=== PATIENT | female | born 1955 | race Hispanic/Latino ===

== ENCOUNTER 2017-02-11 11:21 | Observation (INO) | payer MEDICARE, MEDICAID ==
[2017-02-11 11:21] VITALS: BMI 18.0
[2017-02-11] MEDS ORDERED: Sodium Chloride 0.9% 1,000 ML IV STA (11:40)
[2017-02-11 11:59] LABS: BASO % 0.3 % (0.0-2.0); EOS % 0.3 % (0.0-4.0); HEMATOCRIT 46.3 % (34.0-47.0); LYMPH # 1.3 K/uL (1.0-4.3); LYMPH % 9.1 % (20.0-40.0); MEAN CELL VOLUME 102.4 fl (81.0-99.0); MEAN CORPUSCULAR HEMOGLOBIN 34.8 pg (27.0-31.0); MEAN PLATELET VOLUME 9.5 fl (7.2-11.7); MONO # 0.8 K/uL (0.0-0.8); MONO % 5.7 % (0.0-10.0); NEUT # 12.2 K/uL (1.8-7.0); NEUT % 84.6 % (50.0-75.0); NRBC % 0.1 % (0.0-0.0); PLATELET COUNT 154 K/uL (130-400); RED CELL DISTRIBUTION WIDTH 14.2 % (11.5-14.5); WHITE BLOOD COUNT 14.4 K/uL (4.8-10.8)
--- NOTE | 2017-02-11 12:06 | RAD ---
HISTORY: chest pain COMPARISON: 11/23/2016 FINDINGS: LUNGS: Mild bullous change right apex as on CT angio chest of 11/23/2016. PLEURA: No significant pleural effusion identified, no pneumothorax apparent. CARDIOVASCULAR: Normal. OSSEOUS STRUCTURES: No significant abnormalities. VISUALIZED UPPER ABDOMEN: Normal. OTHER FINDINGS: None. IMPRESSION: Mild bullous change right apex. No acute infiltrate.
[2017-02-11 12:10] LABS: ALB/GLOB RATIO 1.3 (1.0-2.1); ALKALINE PHOSPHATASE 83 U/L (38-126); ALT/SGPT 22 U/L (9-52); AST/SGOT 28 U/L (14-36); BILIRUBIN,TOTAL 0.4 mg/dl (0.2-1.3); BLOOD UREA NITROGEN 17 mg/dl (7-17); CALCIUM 9.9 mg/dL (8.4-10.2); CARBON DIOXIDE 20 mmol/L (22-30); CHLORIDE 105 mmol/L (98-107); GFR AFRICAN-AMERICAN > 60; GLUCOSE,RANDOM 175 mg/dL (65-105); SODIUM 142 mmol/l (132-148); TOTAL PROTEIN 7.8 G/DL (6.3-8.2)
[2017-02-11 12:21] LABS: POTASSIUM 4.1 MMOL/L (3.6-5.0)
--- NOTE | 2017-02-11 13:54 | ED PDOC ---
HPI: General Adult Time Seen by Provider: 02/11/17 11:50 Chief Complaint (Nursing): Abdominal Pain Chief Complaint (Provider): CHEST PAIN History Per: Patient (61 Y/O FEMALE H/O HIV/ CAD here for complaint of palpitations and ten minutes of left sided chest pressure today. Denies any sob. Patient has finished treatment for right foot infection recently. Patient has been afflicted by diarrhea with abdominal pain and small amount of blood. States abdominal pain resolved with stool. No vomiting. ) Past Medical History Reviewed: Historical Data, Nursing Documentation, Vital Signs Vital Signs: Last Vital Signs Temp 97.3 F L 02/11/17 11:30 Pulse 108 H 02/11/17 11:30 Resp 20 02/11/17 11:30 BP 130/82 02/11/17 11:30 Pulse Ox 98 02/11/17 11:30 - Medical History PMH: Anemia, Anxiety, Arthritis, Bipolar Disorder, CAD, Cardia Arrhythmia, COPD , Depression, Diverticulitis, Emphysema, Fractures (Right shoulder (9 years old) ), Gastritis, GERD, HIV, Hypercholesterolemia, Hypothyroidism, Pneumonia Denies: Gall Bladder Disease, HTN, Chronic Kidney Disease, Seizures, Sickle Cell Disease, TIA - Surgical History Surgical History: CABG Other surgeries: cabg in [place] - Family History Family History: States: Unknown Family Hx - Home Medications Home Medications: Ambulatory Orders Medication Instructions Recorded ARIPiprazole [Abilify] 15 mg PO HS 11/06/16 Abacavir/Dolutegravir/Lamivudi 1 tab PO HS 11/06/16 [Triumeq Tablet] Aspirin [Ecotrin] 81 mg PO DAILY 11/06/16 Clonazepam [Klonopin] 0.5 mg PO TID 11/06/16 Levothyroxine [Synthroid] 25 mcg PO DAILY 11/06/16 Multivitamin [One-A-Day Essential] 1 tab PO DAILY 11/06/16 Rosuvastatin Calcium [Crestor] 5 mg PO DAILY 11/06/16 hydrOXYzine Pamoate [Vistaril] 25 mg PO DAILY 11/06/16 DULoxetine [Cymbalta] 60 mg PO HS 11/13/16 Clindamycin [Cleocin] 300 mg PO Q8 #21 cap 01/29/17 Esomeprazole Magnesium [Nexium] 20 mg PO DAILY 03/02/17 - Allergies Allergies/Adverse Reactions: Allergies Allergy/AdvReac Type Severity Reaction Status Date / Time ampicillin Allergy ITCHING Verified 02/11/17 11:36 latex Allergy ITCHING Verified 02/11/17 11:36 Penicillins Allergy ITCHING Verified 02/11/17 11:36 sulfamethoxazole Allergy "shakes" Verified 02/11/17 11:36 [From Bactrim] trimethoprim [From Bactrim] Allergy "shakes" Verified 02/11/17 11:36 Review of Systems ROS Statement: Except As Marked, All Systems Reviewed And Found Negative Cardiovascular: Positive for: Chest Pain Gastrointestinal: Positive for: Diarrhea Physical Exam - Reviewed Nursing Documentation Reviewed: Yes Vital Signs Reviewed: Yes - Physical Exam Appears: Positive for: Well, Non-toxic, No Acute Distress Head Exam: Positive for: ATRAUMATIC, NORMAL INSPECTION, NORMOCEPHALIC Skin: Positive for: Normal Color, Warm, DRY Eye Exam: Positive for: EOMI, Normal appearance, PERRL ENT: Positive for: Normal ENT Inspection Neck: Positive for: Normal, Painless ROM Cardiovascular/Chest: Positive for: Regular Rate, Rhythm Respiratory: Positive for: CNT, Normal Breath Sounds Gastrointestinal/Abdominal: Positive for: Normal Exam, Bowel Sounds, Soft Back: Positive for: Normal Inspection Extremity: Positive for: Normal ROM Neurologic/Psych: Positive for: Alert, Oriented - Laboratory Results Result Diagrams: 02/11/17 11:44 02/11/17 11:44 - ECG O2 Sat by Pulse Oximetry: 98 - Progress ED Course And Treament: EKG: NSR 94bpm; no ectopy ;no acute changes ASA 324 mg x 1 dose ordered CXR: emph[facility]sema d[facility]. [facility] observation Disposition - Clinical Impression Clinical Impression: Chest pain, Diarrhea - Patient ED Disposition Is Patient to be Admitted: Yes - Disposition Disposition Time: 13:45 Condition: FAIR - Pt Status Changed To: Hospital Disposition Of: Observation
[2017-02-11 14:18] LABS: NEUTROPHIL 87 % (42-75); TOTAL CELLS COUNTED 100
[2017-02-11 14:20] LABS: LARGE PLATELETS PRESENT
--- NOTE | 2017-02-11 15:16 | CP.PCM.HP ---
Addendum entered and electronically signed by Jesi Alejandre MD 02/11/17 17:19 : Updated LAb values: 01/09/17 BMP WNL. Lipid panal WNL - HCV: neg - RPR: neg Original Note: History of Present Illness - History of Present Illness History of Present Illness: 61 Y/O F s/p left foot osteotomy with screw fixation (01/21/17), s/p course of abx, w/ a PMH of HIV (last CD4: 819 (01/10/17), PVD, COPD, Hyperlipidemia, Hypothyroidism, Depression presented to ED for a self limiting eppisode of chest pain. Pt states the chest pain started when she got up from a laying down position around 11am, chest pain was sharp in nature, 5/10 in intesinity non radiating. Patients states that the chest pain subsided when she came to the ER. Associated w/ dizziness and palpitation. Denies association w/ n/v/sob, or syncope. Pt states that she had a similar episode in the past, where she passed out and hit her head. Pt states she is compliant with her medication. - Pt had her left foot osteotomy with screw fixation on 01/21/17. After the surgery pt had an infection on the surgery and was given a three day course of clindamycin which she completed today. She developed diarrhea 2 days ago, can not quantify how many times a day she has a bowl movement. IT is non foul smelling, contains pinkish colored blood mixed with mucus stool. P Also noticed pink colored blood on whipping. PMH: CAD s/p CABG, Internal hemorrhoids, hypercholesterolemia, COPD, HIV ( VL: undetectable, CD4: 819 (01/10/17), Bipolar disorder, Tobacco abuse Med:As per chart Allergy: PVN, Latex, ampicillin, sulfamethoxazole, trimethoprim Family Hx: Mother 2/2 lung cancer, father pased away 2/2 heart disease/copd in 50 Surgical Hx: Tipple bipass surgery 2006, left foot osteotomy with screw fixation (01/21/17) Social: 3-4 cig a day since she was 14, Marijuana 2-3 blunts a day. Denies ETOH use ED Course EKG: Consistent with previous EKG ASA 324 mg x 1 dose CXR: emphysema CBC: WBC:14.4, MCV:102.4 C Difficle - Reviewed Holter monitor from 11/2015: 1st degree AV block - ECHO: 11/13/16: 65%, right ventricle mildly dilated, rt ventricular systolic function mildly dilated - Nuclear scan: 12/11/16: EF:65% Lexiscan WNL Present on Admission - Present on Admission Any Indicators Present on Admission: No Review of Systems - Review of Systems Review of Systems: negative except as above Past Patient History - Infectious Disease Hx of Infectious Diseases: None - Tetanus Immunizations Tetanus Immunization: Unknown - Past Medical History & Family History Past Medical History?: Yes - Past Social History Smoking Status: Heavy Smoker > 10 Cigarettes Daily - CARDIAC Hx Cardia Arrhythmia: Yes Hx Hypercholesterolemia: Yes Hx Hypertension: No - PULMONARY Hx Chronic Obstructive Pulmonary Disease (COPD): Yes Hx Emphysema: Yes Hx Pneumonia: Yes - NEUROLOGICAL Hx Seizures: No Hx Transient Ischemic Attacks (TIA): No - HEENT Hx HEENT Problems: No Hx Blind: No Hx Cataracts: No Hx Deafness: No Hx Difficulty Chewing: No Hx Epistaxis: No Hx Glaucoma: No Hx Macular Degeneration: No - RENAL Hx Chronic Kidney Disease: No - ENDOCRINE/METABOLIC Hx Hypothyroidism: Yes - HEMATOLOGICAL/ONCOLOGICAL Hx Anemia: Yes Hx Human Immunodeficiency Virus (HIV): Yes Hx Sickle Cell Disease: No - INTEGUMENTARY Hx Dermatological Problems: No Hx Basil Cell: No Hx Rendon: No Hx Cellulitis: No Hx Eczema: No Hx Melanoma: No Hx Psoriasis: No Hx Squamous Cell: No - MUSCULOSKELETAL/RHEUMATOLOGICAL Hx Arthritis: Yes Hx Fractures: Yes (Right shoulder (9 years old)) - GASTROINTESTINAL Hx Diverticulitis: Yes Hx Gall Bladder Disease: No Hx Gastritis: Yes - GENITOURINARY/GYNECOLOGICAL Hx Genitourinary Disorders: No - PSYCHIATRIC Hx Anxiety: Yes Hx Bipolar Disorder: Yes Hx Depression: Yes - SURGICAL HISTORY Hx Coronary Artery Bypass Graft: Yes - ANESTHESIA Hx Anesthesia: Yes Hx Anesthesia Reactions: No Hx Malignant Hyperthermia: No Meds Allergies/Adverse Reactions: Allergies Allergy/AdvReac Type Severity Reaction Status Date / Time ampicillin Allergy ITCHING Verified 02/11/17 11:36 latex Allergy ITCHING Verified 02/11/17 11:36 Penicillins Allergy ITCHING Verified 02/11/17 11:36 sulfamethoxazole Allergy "shakes" Verified 02/11/17 11:36 [From Bactrim] trimethoprim [From Bactrim] Allergy "shakes" Verified 02/11/17 11:36 Physical Exam - Constitutional Appears: No Acute Distress - Head Exam Head Exam: NORMAL INSPECTION - Eye Exam Eye Exam: EOMI, Normal appearance Pupil Exam: NORMAL ACCOMODATION, PERRL - Respiratory Exam Respiratory Exam: Clear to Auscultation Bilateral, NORMAL BREATHING PATTERN. absent: Rhonchi, Wheezes - Cardiovascular Exam Cardiovascular Exam: REGULAR RHYTHM, +S1, +S2 - Extremities Exam Extremities exam: Negative for: calf tenderness, joint swelling Additional comments: Operation site on left foot seems clean, dry and intact no swelling or discharge - Neurological Exam Neurological exam: Alert, CN II-XII Intact, Oriented x3 - Psychiatric Exam Psychiatric exam: Normal Affect Results - Vital Signs Recent Vital Signs: Last Vital Signs Temp 98.3 F 02/11/17 14:02 Pulse 83 02/11/17 14:02 Resp 18 02/11/17 14:02 BP 108/67 02/11/17 14:02 Pulse Ox 96 02/11/17 14:02 - Labs Result Diagrams: 02/11/17 11:44 02/11/17 11:44 Assessment & Plan - Assessment and Plan (Free Text) Assessment: 61 y/o F with PMH of HIV (last CD4: 819 (01/10/17)), PVD, COPD, Hyperlipidemia, Hypothyroidism, Depression, GARY admitted for evaluation retrosternal chest pain. Chest pain associated with palpitations -Etiology undetermined. ACS vs Substance induced vs Vasovagal -Troponin x1 negative. Follow serial troponins -EKG NSR with no acute ischemic changes -Admit to telemetry for monitoring -ASA 81mg PO daily - Urine toxicology -On statin Diarrhea - F/U C Diff toxin - F/U Fecal Occult blood - 500 ml IV fluid NS Bolus PVD -S/P femoral artery bypass in 2006 -On statin and ASA daily Hyperlipidemia -Well controlled -Lipid panel on 11/14/16: Total chol: 142, LDL: 65, HDL: 38 -Lipitor 20mg PO Hypothyroidism -On Synthroid 25mcg daily HIV -CD4: 819 (01/10/17) -Continue Triumeq daily (patients own) Depression -Taking Cymbalta 60mg PO HS GARY -Following with Tip Goss at [facility] - Klonopin 0.5mg PO HS DVT Prophylaxis -Hold lovenox: as per pt complaining of blood in stool -SCDs
[2017-02-11] MEDS ORDERED: Sodium Chloride 0.9% 500 ML IV SCH (15:45)
[2017-02-11 17:07] VITALS: RESP 18
[2017-02-11 18:00] LABS: RBC URINE 24 /hpf (0-3); URINE BACTERIA RARE (<OCC); URINE BILIRUBIN NEGATIVE (NEGATIVE); URINE BLOOD NEGATIVE (NEGATIVE); URINE COLOR YELLOW (YELLOW); URINE GLUCOSE (UA) NEG (Normal); URINE KETONE NEGATIVE (NEGATIVE); URINE LEUKOCYTE ESTERASE LARGE Leu/uL (Negative); URINE PROTEIN NEGATIVE (NEGATIVE); URINE UROBILINOGEN 0.2-1.0 mg/dL (0.2-1.0); WBC URINE 26 /hpf (0-5)
[2017-02-11] MEDS: Patient's Own Med (Abacavir/Dolutegravir/Lamivudi [Triumeq Tablet] 1 TAB) PO SCH ×2 (21:05→21:09)
[2017-02-11] MEDS ORDERED: Docusate-Senna 50 mg-8.6 mg Tab PO SCH (22:00)
[2017-02-12] MEDS ORDERED: Levothyroxine 25 MCG TAB PO SCH (06:30)
[2017-02-12 07:06] LABS: BASO % 0.8 % (0.0-2.0); EOS % 0.8 % (0.0-4.0); HEMATOCRIT 43.3 % (34.0-47.0); LYMPH # 1.5 K/uL (1.0-4.3); LYMPH % 24.3 % (20.0-40.0); MEAN CELL VOLUME 103.2 fl (81.0-99.0); MEAN CORPUSCULAR HEMOGLOBIN 34.2 pg (27.0-31.0); MEAN CORPUSCULAR HGB CONC 33.1 g/dL (33.0-37.0); MEAN PLATELET VOLUME 9.6 fl (7.2-11.7); MONO # 0.7 K/uL (0.0-0.8); MONO % 11.3 % (0.0-10.0); NEUT % 62.8 % (50.0-75.0); NRBC % 0.1 % (0.0-0.0); RED CELL DISTRIBUTION WIDTH 14.2 % (11.5-14.5); WHITE BLOOD COUNT 6.3 K/uL (4.8-10.8)
[2017-02-12 08:15] LABS: BLOOD UREA NITROGEN 13 mg/dl (7-17); CALCIUM 9.1 mg/dL (8.4-10.2); CARBON DIOXIDE 22 mmol/L (22-30); CHLORIDE 112 mmol/L (98-107); GFR AFRICAN-AMERICAN > 60; GLUCOSE,RANDOM 92 mg/dL (65-105); POTASSIUM 4.3 MMOL/L (3.6-5.0); SODIUM 145 mmol/l (132-148)
[2017-02-12] MEDS ORDERED: Patient's Own Med (Abacavir/Dolutegravir/Lamivudi [Triumeq Tablet] 1 TAB) PO SCH (09:00)
[2017-02-12] MEDS ORDERED: Multivitamin With Minerals Tab PO SCH (09:00)
[2017-02-12] MEDS ORDERED: metroNIDAZOLE 500mg/100ml NS 100 ML IVPB SCH (09:45)
--- NOTE | 2017-02-12 10:49 | CP.PCM.PN ---
Subjective - Date & Time of Evaluation Date of Evaluation: 02/12/17 Time of Evaluation: 07:00 - Subjective Subjective: PT was seen at bedside with no new complaints today. PT states Chest pain is subsided, denies, SOB, n/v. Patient has been eating, tolerating po intake. Diarrhea is still occurring, but blood has subsided in the stool, it is just brownish in color now. Denies any abdominal pain Results C difficle positive Objective - Vital Signs/Intake and Output Vital Signs (last 24 hours): Temp Pulse Resp BP Pulse Ox 97.8 F 61 18 148/82 100 02/12/17 08:03 02/12/17 08:03 02/12/17 08:03 02/12/17 08:03 02/12/17 08:03 - Medications Medications: Current Medications Aripiprazole (Abilify) 15 mg PO HS [facility] [place] Last Admin: 02/11/17 21:05 Dose: 15 mg Aspirin (Ecotrin) 81 mg PO DAILY [facility] Last Admin: 02/12/17 10:19 Dose: 81 mg Atorvastatin Calcium (Lipitor) 20 mg PO DAILY [facility] Last Admin: 02/12/17 10:19 Dose: 20 mg Clonazepam (Klonopin) 0.5 mg PO HS [facility] Last Admin: 02/11/17 21:05 Dose: 0.5 mg Duloxetine HCl (Cymbalta) 60 mg PO HS [facility] [place] Last Admin: 02/11/17 21:05 Dose: 60 mg Home Med (Abacavir/Dolutegravir/Lamivudi [Triumeq Tablet]) 1 tab PO DAILY [facility] [place] Last Admin: 02/12/17 10:18 Dose: 1 tab Sodium Chloride (Sodium Chloride 0.9%) 500 mls @ 500 mls/hr IV .Q1H [facility] [place] Last Admin: 02/11/17 17:02 Dose: Not Given Levothyroxine Sodium (Synthroid) 25 mcg PO DAILY@0630 [facility] Last Admin: 02/12/17 06:56 Dose: 25 mcg Metronidazole (Flagyl) 500 mg PO Q8 [facility] Multivitamins/Minerals (Therapeutic-M Tab) 1 tab PO DAILY [facility] Last Admin: 02/12/17 10:20 Dose: 1 tab - Labs Labs: 02/12/17 06:40 02/12/17 06:40 - Constitutional Appears: No Acute Distress - Head Exam Head Exam: NORMAL INSPECTION - Eye Exam Eye Exam: Normal appearance - Respiratory Exam Respiratory Exam: Clear to Ausculation Bilateral, NORMAL BREATHING PATTERN - Cardiovascular Exam Cardiovascular Exam: REGULAR RHYTHM, +S1, +S2 - GI/Abdominal Exam GI & Abdominal Exam: Soft, Normal Bowel Sounds. absent: Guarding, Rigid, Tenderness - Extremities Exam Extremities Exam: Normal Inspection. absent: Calf Tenderness - Neurological Exam Neurological Exam: Alert, Awake, Oriented x3 Assessment and Plan - Assessment and Plan (Free Text) Assessment: 61 y/o F with PMH of HIV (last CD4: 819 (01/10/17)), PVD, COPD, Hyperlipidemia, Hypothyroidism, Depression, GARY admitted for evaluation retrosternal chest pain. Chest pain associated with palpitations (Resolved) -Etiology undetermined. ACS vs Substance induced vs Vasovagal -Troponin x3 negative. -EKG NSR with no acute ischemic changes -Admit to telemetry for monitoring -ASA 81mg PO daily - Urine toxicology: positive for caniboids -On statin Diarrhea - C Diff Antigen positive, toxin negative - Fecal Occult blood positive - Metronidazole 500mg PO Q8 x 14 days PVD -S/P femoral artery bypass in 2006 -On statin and ASA daily Hyperlipidemia -Well controlled -Lipid panel on 11/14/16: Total chol: 142, LDL: 65, HDL: 38 -Lipitor 20mg PO Hypothyroidism -On Synthroid 25mcg daily HIV -CD4: 819 (01/10/17) -Continue Triumeq daily (patients own) Depression -Taking Cymbalta 60mg PO HS GARY -Following with Tip Goss at [facility] - Klonopin 0.5mg PO HS DVT Prophylaxis -Lovenox -SCDs
[2017-02-12] MEDS ORDERED: Enoxaparin 40 mg Syringe SC SCH (11:00)
[2017-02-12 12:03] VITALS: BP 127/67; PULSE 66; TEMP 97.9; O2SAT 99
--- NOTE | 2017-02-12 13:03 | CP.PCM.DIS ---
Provider - Provider Date of Admission: 02/11/17 13:58 Attending physician: Christiana Zaldivar MD Time Spent in preparation of Discharge (in minutes): 30 Diagnosis - Discharge Diagnosis (1) C. difficile diarrhea Status: Acute Hospital Course - Lab Results Lab Results: Most Recent Lab Values WBC 6.3 K/uL (4.8-10.8) D 02/12/17 06:40 RBC 4.19 Mil/uL (3.80-5.20) 02/12/17 06:40 Hgb 14.3 g/dL (12.0-16.0) 02/12/17 06:40 Hct 43.3 % (34.0-47.0) 02/12/17 06:40 MCV 103.2 fl (81.0-99.0) H 02/12/17 06:40 MCH 34.2 pg (27.0-31.0) H 02/12/17 06:40 MCHC 33.1 g/dL (33.0-37.0) 02/12/17 06:40 RDW 14.2 % (11.5-14.5) 02/12/17 06:40 Plt Count 139 K/uL (130-400) 02/12/17 06:40 MPV 9.6 fl (7.2-11.7) 02/12/17 06:40 Neut % (Auto) 62.8 % (50.0-75.0) 02/12/17 06:40 Lymph % (Auto) 24.3 % (20.0-40.0) 02/12/17 06:40 Cannon % (Auto) 11.3 % (0.0-10.0) H 02/12/17 06:40 Eos % (Auto) 0.8 % (0.0-4.0) 02/12/17 06:40 Baso % (Auto) 0.8 % (0.0-2.0) 02/12/17 06:40 Neut # 4.0 K/uL (1.8-7.0) 02/12/17 06:40 Lymph # 1.5 K/uL (1.0-4.3) 02/12/17 06:40 Cannon # 0.7 K/uL (0.0-0.8) 02/12/17 06:40 Eos # 0.0 K/uL (0.0-0.7) 02/12/17 06:40 Baso # 0.0 K/uL (0.0-0.2) 02/12/17 06:40 Neutrophils % (Manual) 87 % (42-75) H 02/11/17 11:44 Lymphocytes % (Manual) 8 % (20-50) L 02/11/17 11:44 Monocytes % (Manual) 5 % (0-10) 02/11/17 11:44 Platelet Estimate Normal (NORMAL) 02/11/17 11:44 Large Platelets Present 02/11/17 11:44 Anisocytosis (manual) Slight 02/11/17 11:44 Tear Drop Cells Slight 02/11/17 11:44 Sodium 145 mmol/l (132-148) 02/12/17 06:40 Potassium 4.3 MMOL/L (3.6-5.0) 02/12/17 06:40 Chloride 112 mmol/L (98-107) H 02/12/17 06:40 Carbon Dioxide 22 mmol/L (22-30) 02/12/17 06:40 Anion Gap 15 (10-20) 02/12/17 06:40 BUN 13 mg/dl (7-17) 02/12/17 06:40 Creatinine 0.9 mg/dL (0.7-1.2) 02/12/17 06:40 Est GFR ( Amer) > 60 02/12/17 06:40 Est GFR (Non-Af Amer) > 60 02/12/17 06:40 Random Glucose 92 mg/dL (65-105) 02/12/17 06:40 Calcium 9.1 mg/dL (8.4-10.2) 02/12/17 06:40 Magnesium 2.0 MG/DL (1.6-2.3) 02/11/17 11:44 Total Bilirubin 0.4 mg/dl (0.2-1.3) 02/11/17 11:44 AST 28 U/L (14-36) 02/11/17 11:44 ALT 22 U/L (9-52) 02/11/17 11:44 Alkaline Phosphatase 83 U/L (38-126) 02/11/17 11:44 Troponin I < 0.0120 ng/mL (0.00-0.120) 02/12/17 00:08 Total Protein 7.8 G/DL (6.3-8.2) 02/11/17 11:44 Albumin 4.4 g/dL (3.5-5.0) 02/11/17 11:44 Globulin 3.4 gm/dL (2.2-3.9) 02/11/17 11:44 Albumin/Globulin Ratio 1.3 (1.0-2.1) 02/11/17 11:44 Urine Color Yellow (YELLOW) 02/11/17 17:40 Urine Clarity Slighty-cloudy (Clear) 02/11/17 17:40 Urine pH 5.0 (5.0-8.0) 02/11/17 17:40 Ur Specific Pegram 1.016 (1.003-1.030) 02/11/17 17:40 Urine Protein Negative mg/dL (NEGATIVE) 02/11/17 17:40 Urine Glucose (UA) Neg mg/dL (Normal) 02/11/17 17:40 Urine Ketones Negative mg/dL (NEGATIVE) 02/11/17 17:40 Urine Blood Negative (NEGATIVE) 02/11/17 17:40 Urine Nitrate Negative (NEGATIVE) 02/11/17 17:40 Urine Bilirubin Negative (NEGATIVE) 02/11/17 17:40 Urine Urobilinogen 0.2-1.0 mg/dL (0.2-1.0) 02/11/17 17:40 Ur Leukocyte Esterase Large Magdalena/uL (Negative) 02/11/17 17:40 Urine RBC (Auto) 24 /hpf (0-3) H 02/11/17 17:40 Urine Microscopic WBC 26 /hpf (0-5) H 02/11/17 17:40 Ur Squamous Epith Cells 2 /hpf (0-5) 02/11/17 17:40 Urine Bacteria Rare (<OCC) 02/11/17 17:40 Stool Occult Blood Positive (NEGATIVE) H 02/11/17 17:40 Urine Opiates Screen Negative (NEGATIVE) 02/12/17 00:30 Urine Methadone Screen Negative (NEGATIVE) 02/12/17 00:30 Ur Barbiturates Screen Negative (NEGATIVE) 02/12/17 00:30 Ur Phencyclidine Scrn Negative (NEGATIVE) 02/12/17 00:30 Ur Amphetamines Screen Negative (NEGATIVE) 02/12/17 00:30 U Benzodiazepines Scrn Negative (NEGATIVE) 02/12/17 00:30 U Oth Cocaine Metabols Negative (NEGATIVE) 02/12/17 00:30 U Cannabinoids Screen Positive (NEGATIVE) H 02/12/17 00:30 C. difficile Ag & Toxin Positive (NEGATIVE) H 02/11/17 08:02 - Hospital Course Hospital Course: 61 YO F w/ PMH of HIV, COPD, Hyperlipidemia, hypothyroidism, depression,anxiety was admitted to the hospital for Diarrhea s/p taking a course of clindamycin and self resolving chest pain. - Pt's chest pain resloved when she came to the ER, EKG was same as baseline no ischemic changes noted, Troponin x 3 negative. PT has had similar eppisodes in the past and is most likely anxiety induced. - Pt was found to be C diff positve antigen and toxin negative. - Pt was given a 14 day course of Metronidazole 500mg TID. And has been advised to follow up with her PMD. Ambulatory orders: - Rosuvastatin 5mg PO daily - Clonazepam .5mg PO HS - Triumeq tablet: 1 tav PO HS - Levothyroxine 25mcg tab - Asprin 81mg PO daily - Aripiprazole 15mg PO HS - Duloxetine 60 mg PO HS - Meloxicam 7.5 mg PO BID - Metronidazole 500 mg TID x 14 days Discharge Exam - Head Exam Head Exam: NORMAL INSPECTION - Eye Exam Eye Exam: Normal appearance - Respiratory Exam Respiratory Exam: NORMAL BREATHING PATTERN. absent: Rales, Rhonchi, Wheezes - Cardiovascular Exam Cardiovascular Exam: REGULAR RHYTHM, +S1, +S2 - GI/Abdominal Exam GI & Abdominal Exam: Normal Bowel Sounds, Soft. absent: Tenderness - Neurological Exam Neurological exam: Alert, CN II-XII Intact, Normal Gait, Oriented x3 Discharge Plan - Discharge Medications Prescriptions: Metronidazole [Flagyl] 500 mg PO TID #41 tablet - Follow Up Plan Condition: FAIR Disposition: HOME/ ROUTINE Instructions: Chest Pain (DC), Rotavirus Infection (DC), Rotavirus Infection ( GEN), Nutrition Tips for Relief of Diarrhea (DC), Nutrition Tips for Relief of Diarrhea (GEN) Additional Instructions: Take antibiotics (Metronidazole tid for 14 days) first dose given in hospital. Follow up to the clinic w/ in one week. If chest pain returns return or diarrhea worsens return to ER.
--- NOTE | 2017-02-12 19:00 | CARD ---
APPROVED REPORT EKG Measurement Heart [id number] <Conclusion> Normal sinus rhythm Possible Left atrial enlargement Borderline ECG
== END 2017-02-12 15:07 | disposition home or self-care (01) ==
LOC: H.ER 11:21 → H.ERHOLD 13:58 → H.TEL 15:20
PROVIDERS: ADMIT Family Medicine Geriatric Medicine; ATTEND Family Medicine Geriatric Medicine
DX: A04.7 Enterocolitis due to Clostridium difficile (principal); I25.10 Atherosclerotic heart disease of native coronary artery without angina pectoris; E03.9 Hypothyroidism, unspecified; F12.10 Cannabis abuse, uncomplicated; E78.00 Pure hypercholesterolemia, unspecified; E78.5 Hyperlipidemia, unspecified; F31.9 Bipolar disorder, unspecified; F41.9 Anxiety disorder, unspecified; J44.9 Chronic obstructive pulmonary disease, unspecified; K21.9 Gastro-esophageal reflux disease without esophagitis; K29.70 Gastritis, unspecified, without bleeding; Z95.1 Presence of aortocoronary bypass graft; Z21 Asymptomatic human immunodeficiency virus [HIV] infection status; I73.9 Peripheral vascular disease, unspecified; F17.210 Nicotine dependence, cigarettes, uncomplicated; Z79.82 Long term (current) use of aspirin; Z88.0 Allergy status to penicillin; Z88.2 Allergy status to sulfonamides; Z91.040 Latex allergy status
CPT/HCPCS: 36415; 71010; 80048; 80053; 81003; 83735; 84484; 85025; 87230; 93005; 99284; G0328; G0378; G0480; J7040

== ENCOUNTER 2017-06-16 08:29 | Day surgery (SDC) | payer MEDICARE, MEDICAID ==
[2017-06-16] MEDS ORDERED: Lactated Ringer's 500 ML IV ONE (09:15)
[2017-06-16] MEDS ORDERED: Propofol 10 mg/ml Inj (20 ML) ONE (09:37)
[2017-06-16 10:16] VITALS: TEMP 96.9; O2SAT 99
[2017-06-16 10:17] VITALS: BP 100/50; PULSE 64; RESP 15
== END 2017-06-16 11:59 | disposition home or self-care (01) ==
LOC: H.ENDO 08:29
PROVIDERS: ATTEND Internal Medicine Gastroenterology
DX: Z12.11 Encounter for screening for malignant neoplasm of colon (principal); R63.4 Abnormal weight loss; E03.9 Hypothyroidism, unspecified; F32.9 Major depressive disorder, single episode, unspecified; K57.30 Diverticulosis of large intestine without perforation or abscess without bleeding; K64.0 First degree hemorrhoids; K62.5 Hemorrhage of anus and rectum; K29.70 Gastritis, unspecified, without bleeding
CPT/HCPCS: 43239; 88305; G0121; J2001; J2704; J7120

== ENCOUNTER 2017-08-09 13:00 | Observation (INO) | payer MEDICARE, MEDICAID ==
[2017-08-09 13:01] VITALS: BMI 18.0
--- NOTE | 2017-08-09 14:09 | ED PDOC ---
HPI: Chest Pain Time Seen by Provider: 08/09/17 13:21 Chief Complaint (Nursing): Palpitations Chief Complaint (Provider): Palpitations History Per: Patient History/Exam Limitations: no limitations Onset/Duration Of Symptoms: Days Current Symptoms Are (Timing): Still Present Additional Complaint(s): 62 y/o female with a past medical history of human immunodeficiency virus (HIV) (undetectable viral load and does not know CD4 count) who presents to the emergency department with a complaint of intermittent palpitations since yesterday, 08/09/2017, + near syncope, no LOC. Reports she was monitor placed that showed an irregular rhythm but does not know the specifics and was told she needed surgery for this irregular beat. Denies chest pain and shortness of breath. ASA discontinued 2 days ago by PMD secondary to bruising. Past Medical History Reviewed: Historical Data, Nursing Documentation, Vital Signs Vital Signs: Last Vital Signs Temp 97.7 F 08/09/17 13:04 Pulse 71 08/09/17 17:23 Resp 18 08/09/17 17:23 BP 155/87 H 08/09/17 17:23 Pulse Ox 99 08/09/17 17:49 - Medical History PMH: Anemia, Anxiety, Arthritis, Bipolar Disorder, CAD, Cardia Arrhythmia, COPD , Depression, Diverticulitis, Emphysema, Fractures (Right shoulder (9 years old) ), Gastritis, GERD, HIV, Hypercholesterolemia, Hypothyroidism, Pneumonia Denies: Gall Bladder Disease, HTN, Chronic Kidney Disease, Seizures, Sickle Cell Disease, TIA - Surgical History Surgical History: CABG (2006) - Family History Family History: States: Unknown Family Hx - Home Medications Home Medications: Ambulatory Orders Medication Instructions Recorded ARIPiprazole [Abilify] 15 mg PO HS 11/06/16 Abacavir/Dolutegravir/Lamivudi 1 tab PO HS 11/06/16 [Triumeq Tablet] Aspirin [Ecotrin] 81 mg PO DAILY 11/06/16 Clonazepam [Klonopin] 0.5 mg PO HS 11/06/16 Levothyroxine [Synthroid] 25 mcg PO DAILY 11/06/16 Multivitamin [One-A-Day Essential] 1 tab PO DAILY 11/06/16 Rosuvastatin Calcium [Crestor] 5 mg PO DAILY 11/06/16 DULoxetine [Cymbalta] 60 mg PO HS 11/13/16 Meloxicam [Mobic] 7.5 mg PO BID 02/11/17 Metronidazole [Flagyl] 500 mg PO TID #41 tablet 02/12/17 - Allergies Allergies/Adverse Reactions: Allergies Allergy/AdvReac Type Severity Reaction Status Date / Time ampicillin Allergy ITCHING Verified 06/16/17 09:06 latex Allergy ITCHING Verified 06/16/17 09:06 Penicillins Allergy ITCHING Verified 06/16/17 09:06 sulfamethoxazole Allergy "shakes" Verified 06/16/17 09:06 [From Bactrim] trimethoprim [From Bactrim] Allergy "shakes" Verified 06/16/17 09:06 Review of Systems ROS Statement: Except As Marked, All Systems Reviewed And Found Negative Cardiovascular: Positive for: Palpitations. Negative for: Chest Pain Respiratory: Negative for: Shortness of Breath Physical Exam - Reviewed Nursing Documentation Reviewed: Yes Vital Signs Reviewed: Yes - Physical Exam Appears: Positive for: Non-toxic, No Acute Distress Head Exam: Positive for: ATRAUMATIC, NORMAL INSPECTION, NORMOCEPHALIC Skin: Positive for: Normal Color, Warm, Dry Neck: Positive for: Normal, Supple Cardiovascular/Chest: Positive for: Regular Rate, Rhythm. Negative for: Murmur Respiratory: Positive for: Normal Breath Sounds. Negative for: Accessory Muscle Use, Respiratory Distress Neurologic/Psych: Positive for: Alert, Oriented (x3) - Laboratory Results Result Diagrams: 08/09/17 14:30 08/09/17 14:30 - ECG O2 Sat by Pulse Oximetry: 99 (RA) Pulse Ox Interpretation: Normal Medical Decision Making Medical Decision Making: Time: 03:31 Initial impression: Palpitations Initial plan: --EKG --CMP --TSH --Troponin I --Urine DIP --CBC w/ diff --D Dimer --Prothrombin --Chest x-ray --Urinalysis --Reevaluation Time: 14:11 --Chest x-ray FINDINGS: LUNGS: Hyperinflation, manifestations of COPD. No active pulmonary disease. PLEURA: No significant pleural effusion identified. No pneumothorax apparent. CARDIOVASCULAR: Normal. OSSEOUS STRUCTURES: No significant abnormalities. VISUALIZED UPPER ABDOMEN: Normal. OTHER FINDINGS: None. IMPRESSION: No active disease. No significant interval change compared to the prior examination(s). Time: 15:24 --Angio Chest PE CT Scribe Attestation: Documented by Oly Dager, acting as a scribe for Maria R Davis MD. Provider Scribe Attestation: All medical record entries made by the Scribe were at my direction and personally dictated by me. I have reviewed the chart and agree that the record accurately reflects my personal performance of the history, physical exam, medical decision making, and the department course for this patient. I have also personally directed, reviewed, and agree with the discharge instructions and disposition. Disposition - Clinical Impression Clinical Impression: Palpitations, Near syncope - Patient ED Disposition Is Patient to be Admitted: Yes - Disposition Referrals: [facility] [Outside] Disposition Time: 17:45 Condition: STABLE Forms: [employer] (Croatian) Print Language: GREENLANDIC - Pt Status Changed To: Hospital Disposition Of: Observation - POA Present On Arrival: None
--- NOTE | 2017-08-09 14:12 | RAD ---
HISTORY: Palpitations COMPARISON: 02/11/2017. TECHNIQUE: Chest PA and lateral FINDINGS: LUNGS: Hyperinflation, manifestations of COPD. No active pulmonary disease. PLEURA: No significant pleural effusion identified. No pneumothorax apparent. CARDIOVASCULAR: Normal. OSSEOUS STRUCTURES: No significant abnormalities. VISUALIZED UPPER ABDOMEN: Normal. OTHER FINDINGS: None. IMPRESSION: No active disease. No significant interval change compared to the prior examination(s).
[2017-08-09 14:52] LABS: BASO % 0.2 % (0.0-2.0); EOS % 0.1 % (0.0-4.0); HEMATOCRIT 48.1 % (34.0-47.0); LYMPH # 1.6 K/uL (1.0-4.3); LYMPH % 17.9 % (20.0-40.0); MEAN CELL VOLUME 103.2 fl (81.0-99.0); MEAN CORPUSCULAR HEMOGLOBIN 33.7 pg (27.0-31.0); MEAN CORPUSCULAR HGB CONC 32.7 g/dL (33.0-37.0); MONO # 0.4 K/uL (0.0-0.8); MONO % 4.3 % (0.0-10.0); NEUT # 7.1 K/uL (1.8-7.0); NEUT % 77.5 % (50.0-75.0); NRBC % 0.1 % (0.0-0.0); RED CELL DISTRIBUTION WIDTH 14.3 % (11.5-14.5); WHITE BLOOD COUNT 9.1 K/uL (4.8-10.8)
[2017-08-09 14:58] LABS: ALB/GLOB RATIO 1.3 (1.0-2.1); ALKALINE PHOSPHATASE 73 U/L (38-126); ALT/SGPT 36 U/L (9-52); AST/SGOT 36 U/L (14-36); BILIRUBIN,TOTAL 0.4 mg/dl (0.2-1.3); BLOOD UREA NITROGEN 20 mg/dl (7-17); CALCIUM 10.1 mg/dL (8.4-10.2); CARBON DIOXIDE 29 mmol/L (22-30); CHLORIDE 106 mmol/L (98-107); GFR AFRICAN-AMERICAN > 60; GLUCOSE,RANDOM 105 mg/dL (65-105); POTASSIUM 4.5 MMOL/L (3.6-5.0); SODIUM 144 mmol/l (132-148); TOTAL PROTEIN 7.9 G/DL (6.3-8.2)
[2017-08-09 15:12] LABS: PARTIAL THROMBOPLASTIN TIME 32.1 Seconds (25.6-37.1)
[2017-08-09 15:29] LABS: THYROID STIMULATING HORMONE 0.47 mIU/ML (0.46-4.68)
[2017-08-09 15:56] LABS: RBC URINE 4 /hpf (0-3); URINE BILIRUBIN NEGATIVE (NEGATIVE); URINE BLOOD NEGATIVE (NEGATIVE); URINE COLOR YELLOW (YELLOW); URINE GLUCOSE (UA) NEG (Normal); URINE KETONE NEGATIVE (NEGATIVE); URINE LEUKOCYTE ESTERASE TRACE Leu/uL (Negative); URINE PROTEIN 30 mg/dL (NEGATIVE); URINE UROBILINOGEN 0.2-1.0 mg/dL (0.2-1.0)
[2017-08-09] MEDS ORDERED: Sodium Chloride 0.9% 50 ML IV ONE (16:03)
[2017-08-09] MEDS ORDERED: Iodixanol 320 MG/ML 100 ML BOTTLE IV ONE (16:03)
--- NOTE | 2017-08-09 17:03 | CT ---
PROCEDURE: CT Chest with contrast (Pulmonary Angiogram) HISTORY: Palpitations COMPARISON: None available. TECHNIQUE: Axial computed tomography images were obtained of the chest in the pulmonary arterial phase of enhancement. Coronal and sagittal reformatted images were created and reviewed. Intravenous contrast dose: 90 cc Visipaque 320. Mean Hounsfield unit values in the main pulmonary artery: 537.96 Radiation dose: Total exam DLP = 222.03 mGy-cm. This CT exam was performed using one or more of the following dose reduction techniques: Automated exposure control, adjustment of the mA and/or kV according to patient size, and/or use of iterative reconstruction technique. FINDINGS: PULMONARY ARTERIES: Unremarkable. No pulmonary embolism. AORTA: No acute findings. No thoracic aortic aneurysm. LUNGS: Hyperinflation, manifestations of COPD. No active pulmonary disease. Bullous changes identified in the apices. Fibronodular scarring, dystrophic Benign-appearing calcifications identified in the right apex. No suspicious pulmonary nodules, masses, infiltrates identified. PLEURAL SPACES: Unremarkable. No effusion or pneuomothorax. HEART: Unremarkable. No cardiomegaly. No significant pericardial effusion. LYMPH NODES: No lymphadenopathy. BONES, CHEST WALL: Unremarkable. No fracture or destructive lesion OTHER FINDINGS: Unremarkable. IMPRESSION: Unremarkable CT pulmonary angiogram. No pulmonary embolus. Additional benign and/or incidental findings described above.
--- NOTE | 2017-08-09 18:11 | CP.PCM.HP ---
History of Present Illness - History of Present Illness History of Present Illness: 62 yr old F with PMHx of HIV (05/01/17: CD4 812; HIV RNA < 20), PVD, current smoker, daily substance abuse (marijuana), emphysema, chronic low back pain, latent TB s/p INH, Anxiety, peripheral neuropathy, Gastritis, palpitations, depressive disorder presented to ED with complaint of palpitations and feeling like she is going to pass out x 2 days. Patient states "I'm scared I'm going to drop ". She reports these palpitations are chronic, she did not come to the ER sooner because she thought it might be anxiety, she had a recent holter test and has an appt with cardiology in August, but her palpitations worsened and this brought her to the ER. Denies chest pain, nausea, vomiting, dizziness, weakness, SOB, fevers, chills or falls. Reports her last use or marijuana was last night. She stopped her ASA 2 days ago due to bruising, her last PMD visit was 07/27/17. Pt reports seeing cardiology in 07/14/17 for medical optimization for possible right hammertoe surgery. PMD: Dr. Balderas (next appt 09/22/17) Specialists: Tip Goss (f/u appt 08/24/17), Dr. Hong (f/u appt 10/09/17) , Dr. Lemus (f/u appt 09/08/17) PMHx: HIV (05/01/17: CD4 812; HIV RNA < 20), PVD, current smoker, daily substance abuse (marijuana), emphysema, chronic low back pain, latent TB s/p INH, Anxiety , peripheral neuropathy, Gastritis, palpitations, depressive disorder SurgHx: aorto venous bypass 2006, triple bypass 11/2006 ?, Tubal ligation, right foot pins placed in 1st and 3rd metatarsal FMHx: non contributory SocHx: current smoker no 3 cig/daily (past 1.5 packs x 44yrs), daily marijuana use (last use was last night), denies Etoh Medications: ProAir HFA 108 mcg/act INH 2 puffs by mouth Q4hr PRN, Triumeq 600- 50-300 mg 1 tab PO QD, Duloxetine HCl 60 mg PO QD, Abilify 20mg PO QD, Strovite 1 tab PO QD, Clonazepam 0.5mg 1 tab PO QID PRN anxiety greater than 2/4 with 4 being the highest, Esomeprazole 20mg PO QD, Crestor 5mg PO QD, Synthroid 25mcg PO QD, Ensure 1 can PO TID Allergies: Bactrim (itch), Penicillin (itch), Latex (rash), Zithromax (shaky), Prednisone (shakes) ED Course: BP 119/83 mmHg, P 100, R 18, T 97.7 F, O2 99% on room air -EKG: sinus rhythm with 1st degree AV block, CXR: no active disease, no interval change compared to prior -CBC wnl, CMP wnl, D-dimer 886, troponin neg x 1, TSH 0.47, UA trace leukocyte esterase -CT chest: unremarkable, COPD manifestations, no PE -ED athletic monitor: intermittent tachycardia in 120's Present on Admission - Present on Admission Any Indicators Present on Admission: No History of DVT/PE: No History of Uncontrolled Diabetes: No Urinary Catheter: No Decubitus Ulcer Present: No Review of Systems - Review of Systems All systems: reviewed and no additional remarkable complaints except (what is mentioned in HPI) Past Patient History - Infectious Disease Hx of Infectious Diseases: None - Tetanus Immunizations Tetanus Immunization: Unknown - Past Medical History & Family History Past Medical History?: Yes - Past Social History Smoking Status: Heavy Smoker > 10 Cigarettes Daily - CARDIAC Hx Cardia Arrhythmia: Yes Hx Hypercholesterolemia: Yes Hx Hypertension: No - PULMONARY Hx Chronic Obstructive Pulmonary Disease (COPD): Yes Hx Emphysema: Yes Hx Pneumonia: Yes - NEUROLOGICAL Hx Seizures: No Hx Transient Ischemic Attacks (TIA): No - HEENT Hx HEENT Problems: No Hx Blind: No Hx Cataracts: No Hx Deafness: No Hx Difficulty Chewing: No Hx Epistaxis: No Hx Glaucoma: No Hx Macular Degeneration: No - RENAL Hx Chronic Kidney Disease: No - ENDOCRINE/METABOLIC Hx Hypothyroidism: Yes - HEMATOLOGICAL/ONCOLOGICAL Hx Anemia: Yes Hx Human Immunodeficiency Virus (HIV): Yes Hx Sickle Cell Disease: No - INTEGUMENTARY Hx Dermatological Problems: No Hx Basil Cell: No Hx Rendon: No Hx Cellulitis: No Hx Eczema: No Hx Melanoma: No Hx Psoriasis: No Hx Squamous Cell: No - MUSCULOSKELETAL/RHEUMATOLOGICAL Hx Arthritis: Yes Hx Fractures: Yes (Right shoulder (9 years old)) - GASTROINTESTINAL Hx Diverticulitis: Yes Hx Gall Bladder Disease: No Hx Gastritis: Yes - GENITOURINARY/GYNECOLOGICAL Hx Genitourinary Disorders: No - PSYCHIATRIC Hx Anxiety: Yes Hx Bipolar Disorder: Yes Hx Depression: Yes - SURGICAL HISTORY Hx Coronary Artery Bypass Graft: Yes (2006) - ANESTHESIA Hx Anesthesia: Yes Hx Anesthesia Reactions: No Hx Malignant Hyperthermia: No Meds Allergies/Adverse Reactions: Allergies Allergy/AdvReac Type Severity Reaction Status Date / Time ampicillin Allergy ITCHING Verified 06/16/17 09:06 latex Allergy ITCHING Verified 06/16/17 09:06 Penicillins Allergy ITCHING Verified 06/16/17 09:06 sulfamethoxazole Allergy "shakes" Verified 06/16/17 09:06 [From Bactrim] trimethoprim [From Bactrim] Allergy "shakes" Verified 06/16/17 09:06 Physical Exam - Constitutional Appears: No Acute Distress, Older Than Stated Age, Cachectic - Head Exam Head Exam: ATRAUMATIC, NORMOCEPHALIC - Eye Exam Eye Exam: EOMI, PERRL - ENT Exam ENT Exam: Mucous Membranes Moist - Neck Exam Neck exam: Positive for: Full Rom. Negative for: Lymphadenopathy - Respiratory Exam Respiratory Exam: NORMAL BREATHING PATTERN - Cardiovascular Exam Cardiovascular Exam: REGULAR RHYTHM, +S1, +S2 - GI/Abdominal Exam GI & Abdominal Exam: Normal Bowel Sounds, Soft. absent: Tenderness - Extremities Exam Extremities exam: Positive for: full ROM. Negative for: calf tenderness, pedal edema - Back Exam Back exam: absent: CVA tenderness (L), CVA tenderness (R) - Neurological Exam Neurological exam: Alert, CN II-XII Intact, Normal Gait, Oriented x3 - Psychiatric Exam Psychiatric exam: Normal Affect, Normal Mood - Skin Skin Exam: Dry, Intact, Normal Color, Warm Results - Vital Signs Recent Vital Signs: Last Vital Signs Temp 97.7 F 08/09/17 13:04 Pulse 71 08/09/17 17:23 Resp 18 08/09/17 17:23 BP 155/87 H 08/09/17 17:23 Pulse Ox 99 08/09/17 18:05 - Labs Result Diagrams: 08/09/17 14:30 08/09/17 14:30 Labs: Laboratory Results - last 24 hr 08/09/17 08/09/17 08/09/17 14:30 14:30 14:30 WBC 9.1 RBC 4.65 Hgb 15.7 Hct 48.1 H MCV 103.2 H MCH 33.7 H MCHC 32.7 L RDW 14.3 Plt Count 158 MPV 10.0 Neut % (Auto) 77.5 H Lymph % (Auto) 17.9 L [place] % (Auto) 4.3 Eos % (Auto) 0.1 Baso % (Auto) 0.2 Neut # 7.1 H Lymph # 1.6 [place] # 0.4 Eos # 0.0 Baso # 0.0 PT 10.5 INR 1.0 APTT 32.1 D-Dimer, Quantitative 886 H Sodium 144 Potassium 4.5 Chloride 106 Carbon Dioxide 29 Anion Gap 14 BUN 20 H Creatinine 0.8 Est GFR ( Amer) > 60 Est GFR (Non-Af Amer) > 60 Random Glucose 105 Calcium 10.1 Total Bilirubin 0.4 AST 36 ALT 36 Alkaline Phosphatase 73 Troponin I < 0.0120 Total Protein 7.9 Albumin 4.5 Globulin 3.4 Albumin/Globulin Ratio 1.3 TSH 3rd Generation 0.47 Urine Color Urine Clarity Urine pH Ur Specific [place] Urine Protein Urine Glucose (UA) Urine Ketones Urine Blood Urine Nitrate Urine Bilirubin Urine Urobilinogen Ur Leukocyte Esterase Urine RBC (Auto) Ur Squamous Epith Cells 08/09/17 14:40 WBC RBC Hgb Hct MCV MCH MCHC RDW Plt Count MPV Neut % (Auto) Lymph % (Auto) [place] % (Auto) Eos % (Auto) Baso % (Auto) Neut # Lymph # [place] # Eos # Baso # PT INR APTT D-Dimer, Quantitative Sodium Potassium Chloride Carbon Dioxide Anion Gap BUN Creatinine Est GFR ( Amer) Est GFR (Non-Af Amer) Random Glucose Calcium Total Bilirubin AST ALT Alkaline Phosphatase Troponin I Total Protein Albumin Globulin Albumin/Globulin Ratio TSH 3rd Generation Urine Color Yellow Urine Clarity Slighty-cloudy Urine pH 5.0 Ur Specific [place] 1.019 Urine Protein 30 Urine Glucose (UA) Neg Urine Ketones Negative Urine Blood Negative Urine Nitrate Negative Urine Bilirubin Negative Urine Urobilinogen 0.2-1.0 Ur Leukocyte Esterase Trace Urine RBC (Auto) 4 H Ur Squamous Epith Cells 6 H Assessment & Plan - Assessment and Plan (Free Text) Assessment: 62 yr old F with PMHx of HIV (05/01/17: CD4 812; HIV RNA < 20), PVD, current smoker, daily substance abuse (marijuana), emphysema, chronic low back pain, latent TB s/p INH, Anxiety, peripheral neuropathy, Gastritis, palpitations, depressive disorder admitted for palpitations and near syncope. Plan 1. Palpitations and near syncope -Cardiac etiology ( Inappropriate Sinus Tachycardia) vs Anxiety -EKG: sinus rhythm with 1st degree AV block, ED athletic monitor: oscillating HR up to 120's -troponin neg x 1 -admit to tele -holter results 07/16/17: sinus rhythm, sinus tachycardia, sinus bradycardia, see full report -f/u EKG in AM -f/u Cardiology consult: Dr. Lemus 2. Asymtomatic HIV -05/01/17: CD4 812; HIV RNA < 20 -continue with home med Triumeq 600-50-300 mg 1 tab PO QD, Strovite 1 tab PO QD (dose?) -call pharmacy and confirm home med dose of Strovite (Divalproex sodium), order 3. Emphysema -controlled -CT chest: unremarkable, COPD manifestations, no PE -continue home med: ProAir HFA 108 mcg/act INH 2 puffs by mouth Q4hr PRN 4. Anxiety/Depression -controlled -continue home med: Duloxetine HCl 60 mg PO QD, Abilify 20mg PO QD, Clonazepam 0.5mg 1 tab PO QID PRN anxiety 5. Hypothyroidism -chronic, controlled -TSH 0.47 -continue home med: Levothyroxine 25 mcg PO QD 6. Cachexia -chronic -regular diet -continue home meds: Remeron 7.5 mg PO QHS, Ensure 1 can PO TID 7. Hyperlipidemia -controlled, lipid panel : triglycerides 208, rest wnl 11/14/16 -start Atorvastatin 20mg PO QD (substitute for home med Crestor 5mg PO QD) 8. GERD -controlled -continue home med: Protonix 20mg PO QD 9. Macrocytosis without anemia -chronic (since 04/2015) , stable -f/u folate, B12 10. DVT Prophylaxis -Lovenox 40mg SC QD - Date & Time Date: 08/10/17 Time: 17:30
[2017-08-09] MEDS ORDERED: Patient's Own Med (Abacavir/Dolutegravir/Lamivudi [Triumeq Tablet] 1 TAB) PO SCH (22:00)
[2017-08-09] MEDS ORDERED: Albuterol HFA 90 mcg/actuation (8 g) INH PRN (23:11)
[2017-08-10] MEDS ORDERED: Levothyroxine 25 MCG TAB PO SCH (06:30)
[2017-08-10 06:41] LABS: HEMATOCRIT 48.2 % (34.0-47.0); MEAN CELL VOLUME 103.7 fl (81.0-99.0); MEAN CORPUSCULAR HGB CONC 32.8 g/dL (33.0-37.0); RED CELL DISTRIBUTION WIDTH 14.6 % (11.5-14.5); WHITE BLOOD COUNT 6.4 K/uL (4.8-10.8)
[2017-08-10 06:54] LABS: BLOOD UREA NITROGEN 17 mg/dl (7-17); CALCIUM 9.3 mg/dL (8.4-10.2); CARBON DIOXIDE 27 mmol/L (22-30); CHLORIDE 109 mmol/L (98-107); GFR AFRICAN-AMERICAN > 60; GLUCOSE,RANDOM 87 mg/dL (65-105); SODIUM 142 mmol/l (132-148)
--- NOTE | 2017-08-10 07:55 | CARD ---
APPROVED REPORT EKG Measurement Heart [id number] <Conclusion> Sinus rhythm with 1st degree AV block Otherwise normal ECG
[2017-08-10 08:14] VITALS: RESP 18; O2SAT 100
[2017-08-10] MEDS ORDERED: Multivitamin With Minerals Tab PO SCH (09:00)
[2017-08-10] MEDS ORDERED: Pantoprazole 20 mg EC Tab PO SCH (09:00)
[2017-08-10] MEDS ORDERED: Enoxaparin 40 mg Syringe SC SCH (09:00)
--- NOTE | 2017-08-10 10:23 | CP.PCM.CON ---
History of Present Illness - History of Present Illness History of Present Illness: this 62-year-old female, a chronic smoker with COPD who is HIV positive with anxiety disorder and depression and peripheral neuropathy came into the hospital complaining of palpitations. I've seen this patient in the cardiovascular clinic approximately a month back with similar symptoms. The patient denies using broncho-dilators and her symptoms are not connected to using broncho-dilators. There is no history of myocardial infarction or congestive cardiac failure. Physical examination shows an elderly, extremely anxious female who looks older than her stated age. She is emaciated. Afebrile with a pulse rate of 78 bpm and regular and a blood pressure off 130/74 mmHg. Her jugular venous pressure was not elevated and there was no edema over the lower extremity. The pedal pulses were feeble but present. There were no carotid bruits. The apex was in the fifth space the first and second heart sounds are normal. There was no murmur or gallop. her electrocardiograms taken since her admission were reviewed and except for F was degree AV block no abnormality was detected. Holter tracings of November and June were also reviewed and no significant arrhythmia was detected including an occurrence of dizziness during her June Holter recording which corresponded to sinus rhythm at physiological rates. A nuclear stress test in November did not show any evidence of potentially ischemic myocardium and her left ventricular systolic function was normal. Impression: recurrent bouts of palpitations in the patient with severe COPD, HIV disease and anxiety and depressive disorder. I have instructed patient to ambulate and report any sense of palpitations or lightheadedness while on telemetry. Past Patient History - Infectious Disease Hx of Infectious Diseases: None - Tetanus Immunizations Tetanus Immunization: Unknown - Past Medical History & Family History Past Medical History?: Yes - Past Social History Smoking Status: Heavy Smoker > 10 Cigarettes Daily - CARDIAC Hx Cardia Arrhythmia: Yes Hx Hypercholesterolemia: Yes Hx Hypertension: No - PULMONARY Hx Chronic Obstructive Pulmonary Disease (COPD): Yes Hx Emphysema: Yes Hx Pneumonia: Yes - NEUROLOGICAL Hx Seizures: No Hx Transient Ischemic Attacks (TIA): No - HEENT Hx HEENT Problems: No Hx Blind: No Hx Cataracts: No Hx Deafness: No Hx Difficulty Chewing: No Hx Epistaxis: No Hx Glaucoma: No Hx Macular Degeneration: No - RENAL Hx Chronic Kidney Disease: No - ENDOCRINE/METABOLIC Hx Hypothyroidism: Yes - HEMATOLOGICAL/ONCOLOGICAL Hx Anemia: Yes Hx Human Immunodeficiency Virus (HIV): Yes Hx Sickle Cell Disease: No - INTEGUMENTARY Hx Dermatological Problems: No Hx Basil Cell: No Hx Rendon: No Hx Cellulitis: No Hx Eczema: No Hx Melanoma: No Hx Psoriasis: No Hx Squamous Cell: No - MUSCULOSKELETAL/RHEUMATOLOGICAL Hx Arthritis: Yes Hx Fractures: Yes (Right shoulder (9 years old)) - GASTROINTESTINAL Hx Diverticulitis: Yes Hx Gall Bladder Disease: No Hx Gastritis: Yes - GENITOURINARY/GYNECOLOGICAL Hx Genitourinary Disorders: No - PSYCHIATRIC Hx Anxiety: Yes Hx Bipolar Disorder: Yes Hx Depression: Yes - SURGICAL HISTORY Hx Coronary Artery Bypass Graft: Yes (2006) - ANESTHESIA Hx Anesthesia: Yes Hx Anesthesia Reactions: No Hx Malignant Hyperthermia: No Meds Allergies/Adverse Reactions: Allergies Allergy/AdvReac Type Severity Reaction Status Date / Time ampicillin Allergy ITCHING Verified 06/16/17 09:06 latex Allergy ITCHING Verified 06/16/17 09:06 Penicillins Allergy ITCHING Verified 06/16/17 09:06 sulfamethoxazole Allergy "shakes" Verified 06/16/17 09:06 [From Bactrim] trimethoprim [From Bactrim] Allergy "shakes" Verified 06/16/17 09:06 - Medications Medications: Current Medications Albuterol (Ventolin Hfa 90 Mcg/Actuation (8 G)) 2 puff INH RQ4 PRN PRN Reason: Shortness of Breath Aripiprazole (Abilify) 20 mg PO HS [facility] Atorvastatin Calcium (Lipitor) 20 mg PO DAILY [facility] Last Admin: 08/10/17 09:29 Dose: 20 mg Clonazepam (Klonopin) 0.5 mg PO QID PRN PRN Reason: Anxiety Duloxetine HCl (Cymbalta) 60 mg PO HS [facility] Last Admin: 08/09/17 22:54 Dose: 60 mg Enoxaparin Sodium (Lovenox) 40 mg SC DAILY [facility] PRN Reason: Protocol Last Admin: 08/10/17 09:29 Dose: 40 mg Home Med (Abacavir/Dolutegravir/Lamivudi [Triumeq Tablet]) 1 tab PO [facility] Levothyroxine Sodium (Synthroid) 25 mcg PO DAILY@0630 [facility] Last Admin: 08/10/17 06:31 Dose: 25 mcg Metronidazole (Flagyl) 500 mg PO TID [facility] Last Admin: 08/10/17 09:28 Dose: 500 mg Mirtazapine (Remeron) 7.5 mg PO HS [facility] Multivitamins/Minerals (Therapeutic-M Tab) 1 tab PO DAILY [facility] Last Admin: 08/10/17 09:30 Dose: 1 tab Pantoprazole Sodium (Protonix Ec Tab) 20 mg PO DAILY [facility] Last Admin: 08/10/17 09:30 Dose: 20 mg Results - Vital Signs Recent Vital Signs: Last Vital Signs Temp 98.1 F 08/10/17 08:14 Pulse 81 08/10/17 08:14 Resp 18 08/10/17 08:14 BP 143/90 08/10/17 08:14 Pulse Ox 100 08/10/17 08:14 - Labs Result Diagrams: 08/10/17 05:40 08/10/17 05:40 Labs: Laboratory Results - last 24 hr 08/10/17 08/10/17 05:40 05:40 WBC 6.4 RBC 4.65 Hgb 15.8 Hct 48.2 H MCV 103.7 H MCH 34.0 H MCHC 32.8 L RDW 14.6 H Plt Count 141 Sodium 142 Potassium 4.0 Chloride 109 H Carbon Dioxide 27 Anion Gap 10 BUN 17 Creatinine 0.7 Est GFR ( Amer) > 60 Est GFR (Non-Af Amer) > 60 Random Glucose 87 Calcium 9.3 Vitamin B12 745
[2017-08-10 12:07] VITALS: BP 130/83; PULSE 73; TEMP 98
--- NOTE | 2017-08-10 13:55 | CP.PCM.DIS ---
Provider - Provider Date of Admission: 08/09/17 18:02 Attending physician: Christiana Zaldivar MD Primary care physician: PMD: Saima Balderas. Consults: Cardiology: Dr Saima Lemus Time Spent in preparation of Discharge (in minutes): 30 Hospital Course - Lab Results Lab Results: Most Recent Lab Values WBC 6.4 K/uL (4.8-10.8) 08/10/17 05:40 RBC 4.65 Mil/uL (3.80-5.20) 08/10/17 05:40 Hgb 15.8 g/dL (12.0-16.0) 08/10/17 05:40 Hct 48.2 % (34.0-47.0) H 08/10/17 05:40 MCV 103.7 fl (81.0-99.0) H 08/10/17 05:40 MCH 34.0 pg (27.0-31.0) H 08/10/17 05:40 MCHC 32.8 g/dL (33.0-37.0) L 08/10/17 05:40 RDW 14.6 % (11.5-14.5) H 08/10/17 05:40 Plt Count 141 K/uL (130-400) 08/10/17 05:40 MPV 10.0 fl (7.2-11.7) 08/09/17 14:30 Neut % (Auto) 77.5 % (50.0-75.0) H 08/09/17 14:30 Lymph % (Auto) 17.9 % (20.0-40.0) L 08/09/17 14:30 [place] % (Auto) 4.3 % (0.0-10.0) 08/09/17 14:30 Eos % (Auto) 0.1 % (0.0-4.0) 08/09/17 14:30 Baso % (Auto) 0.2 % (0.0-2.0) 08/09/17 14:30 Neut # 7.1 K/uL (1.8-7.0) H 08/09/17 14:30 Lymph # 1.6 K/uL (1.0-4.3) 08/09/17 14:30 [place] # 0.4 K/uL (0.0-0.8) 08/09/17 14:30 Eos # 0.0 K/uL (0.0-0.7) 08/09/17 14:30 Baso # 0.0 K/uL (0.0-0.2) 08/09/17 14:30 PT 10.5 Seconds (9.8-13.1) 08/09/17 14:30 INR 1.0 (0.9-1.2) 08/09/17 14:30 APTT 32.1 Seconds (25.6-37.1) 08/09/17 14:30 D-Dimer, Quantitative 886 ng/mlDDU (0-230) H 08/09/17 14:30 Sodium 142 mmol/l (132-148) 08/10/17 05:40 Potassium 4.0 MMOL/L (3.6-5.0) 08/10/17 05:40 Chloride 109 mmol/L (98-107) H 08/10/17 05:40 Carbon Dioxide 27 mmol/L (22-30) 08/10/17 05:40 Anion Gap 10 (10-20) 08/10/17 05:40 BUN 17 mg/dl (7-17) 08/10/17 05:40 Creatinine 0.7 mg/dL (0.7-1.2) 08/10/17 05:40 Est GFR ( Amer) > 60 08/10/17 05:40 Est GFR (Non-Af Amer) > 60 08/10/17 05:40 Random Glucose 87 mg/dL (65-105) 08/10/17 05:40 Calcium 9.3 mg/dL (8.4-10.2) 08/10/17 05:40 Total Bilirubin 0.4 mg/dl (0.2-1.3) 08/09/17 14:30 AST 36 U/L (14-36) 08/09/17 14:30 ALT 36 U/L (9-52) 08/09/17 14:30 Alkaline Phosphatase 73 U/L (38-126) 08/09/17 14:30 Troponin I < 0.0120 ng/mL (0.00-0.120) 08/09/17 14:30 Total Protein 7.9 G/DL (6.3-8.2) 08/09/17 14:30 Albumin 4.5 g/dL (3.5-5.0) 08/09/17 14:30 Globulin 3.4 gm/dL (2.2-3.9) 08/09/17 14:30 Albumin/Globulin Ratio 1.3 (1.0-2.1) 08/09/17 14:30 Vitamin B12 745 pg/mL (239-931) 08/10/17 05:40 TSH 3rd Generation 0.47 mIU/ML (0.46-4.68) 08/09/17 14:30 Urine Color Yellow (YELLOW) 08/09/17 14:40 Urine Clarity Slighty-cloudy (Clear) 08/09/17 14:40 Urine pH 5.0 (5.0-8.0) 08/09/17 14:40 Ur Specific [place] 1.019 (1.003-1.030) 08/09/17 14:40 Urine Protein 30 mg/dL (NEGATIVE) 08/09/17 14:40 Urine Glucose (UA) Neg mg/dL (Normal) 08/09/17 14:40 Urine Ketones Negative mg/dL (NEGATIVE) 08/09/17 14:40 Urine Blood Negative (NEGATIVE) 08/09/17 14:40 Urine Nitrate Negative (NEGATIVE) 08/09/17 14:40 Urine Bilirubin Negative (NEGATIVE) 08/09/17 14:40 Urine Urobilinogen 0.2-1.0 mg/dL (0.2-1.0) 08/09/17 14:40 Ur Leukocyte Esterase Trace [place]/uL (Negative) 08/09/17 14:40 Urine RBC (Auto) 4 /hpf (0-3) H 08/09/17 14:40 Ur Squamous Epith Cells 6 /hpf (0-5) H 08/09/17 14:40 - Hospital Course Hospital Course: 62 y/o F with a PMHx of HIV positive, emphysema, chronic heavy smoker, PVD, hypothyroidism daily substance abuse ([place]), peripheral neuropathy, anxiety and depressive disorder was admitted due to recurrent palpitations. -EKG showed sinus rhythm with 1st degree AV block. -CXR, CBC, CMP, TSH and coagulation profile were unremarkable except for D- dimer (elevated), troponin neg x1. CT chest was unremarkable. a and p mechanic showed intermittent tachycardia 120s. Cardiology was consulted. - Home medications: ProAir HFA 108 mcg/act INH 2 puffs by mouth Q4hr PRN, Triumeq 600-50-300 mg 1 tab PO QD, Duloxetine HCl 60 mg PO QD, Abilify 20mg PO QD, Strovite 1 tab PO QD, Clonazepam 0.5mg 1 tab PO QID PRN anxiety, Esomeprazole 20mg PO QD, Crestor 5mg PO QD, Synthroid 25mcg PO QD, Ensure 1 can PO TID - Pt remained stable, discharged with NO palpitations, CP or SOB. NO new medications. - Pt reminded of follow-up appointments: Tip Goss APN on 08/24; Dr Leeann Lemus on 09/08; Dr Saima Balderas 09/22; Dr Carly Fernandez on 10/09. ER precautions discussed. - Date & Time of H&P Date of H&P: 08/09/17 Time of H&P: 18:11 Discharge Exam - Head Exam Head Exam: ATRAUMATIC, NORMOCEPHALIC - Eye Exam Eye Exam: Normal appearance - ENT Exam ENT Exam: Normal Exam - Respiratory Exam Respiratory Exam: UNREMARKABLE - Cardiovascular Exam Cardiovascular Exam: REGULAR RHYTHM, +S1, +S2 - GI/Abdominal Exam GI & Abdominal Exam: Soft. absent: Rigid, Tenderness - Neurological Exam Neurological exam: Alert, Oriented x3 Discharge Plan - Follow Up Plan Condition: STABLE Disposition: HOME/ ROUTINE Instructions: Palpitations (DC) Additional Instructions: - Pt was reminded of follow-up appointments for further investigation. Tip Goss APN on 08/24; Psychiatry. Dr Leeann Lemus on 09/08; Cardiology Dr Saima Balderas 09/22; PMD Dr Carly Fernandez on 10/09. Radio Station [employer]. -Resume home medications as prescribed. - Pt recommended to return to ER if fever, chest pain, palpitations, SOB, sweating or severe dizziness. Referrals: [facility] [place] [Outside]
[2017-08-10 18:26] LABS: FOLATE > 20.0 ng/mL
--- NOTE | 2017-08-11 09:02 | CARD ---
APPROVED REPORT EKG Measurement Heart [id number] <Conclusion> Sinus rhythm with 1st degree AV block Otherwise normal ECG
== END 2017-08-10 14:30 | disposition home or self-care (01) ==
LOC: H.ER 13:00 → H.ERHOLD 18:02 → H.TEL 21:15
PROVIDERS: ADMIT Family Medicine Geriatric Medicine; ATTEND Family Medicine Geriatric Medicine
DX: R00.2 Palpitations (principal); R55 Syncope and collapse; Z21 Asymptomatic human immunodeficiency virus [HIV] infection status; F17.200 Nicotine dependence, unspecified, uncomplicated; K29.70 Gastritis, unspecified, without bleeding; J44.9 Chronic obstructive pulmonary disease, unspecified; I73.9 Peripheral vascular disease, unspecified; F41.9 Anxiety disorder, unspecified; F31.9 Bipolar disorder, unspecified; F12.10 Cannabis abuse, uncomplicated; Z88.0 Allergy status to penicillin; M54.5 Low back pain; I44.0 Atrioventricular block, first degree; E03.9 Hypothyroidism, unspecified; K21.9 Gastro-esophageal reflux disease without esophagitis; R64 Cachexia; D75.89 Other specified diseases of blood and blood-forming organs; G62.9 Polyneuropathy, unspecified; Z68.1 Body mass index [BMI] 19.9 or less, adult; Z79.82 Long term (current) use of aspirin; Z95.1 Presence of aortocoronary bypass graft; Z88.1 Allergy status to other antibiotic agents; Z91.040 Latex allergy status; Z88.2 Allergy status to sulfonamides
CPT/HCPCS: 36415; 71020; 71275; 80048; 80053; 81003; 82607; 82746; 84443; 84484; 85025; 85027; 85378; 85610; 85730; 93005; 99285; G0378; J1650; Q9967

== ENCOUNTER 2018-11-21 09:58 | Emergency (ER) | payer MEDICARE, MEDICAID ==
[2018-11-21 09:58] VITALS: BMI 16.2
--- NOTE | 2018-11-21 11:10 | ED PDOC ---
Lower Extremity Pain/Injury Time Seen by Provider: 11/21/18 10:15 Chief Complaint (Nursing): Lower Extremity Problem/Injury Chief Complaint (Provider): Lower Extremity Problem/Injury History Per: Patient History/Exam Limitations: no limitations Onset/Duration Of Symptoms: Hrs Current Symptoms Are (Timing): Still Present Additional Complaint(s): 63 y/o female with a PMHx of Arthritis, HIV, Hypercholesterolemia, CAD, Cardia Arrhythmia, COPD, Pneumonia, Depression, Fracture (right shoulder) for evaluation of a left hip injury s/p fall. Patient woke up this morning to go to the bathroom and states she does not remember what happened next. Patient was found on the floor by her grandson who helped her get up. Patient states she had difficulty getting up and walking secondary to pain in the left hip and left buttock. Denies chest pain, headache, shortness of breath, head injury, dizziness and vomiting. PMD: [facility] - Hip Description Of Injury: Fell Against Medical Advice - AMA Patient Left Against Medical Advice: The patient declines admission to the hospital and wishes to leave the Emergency Department. This action is against my medical advice. This decision was made with informed refusal. The patient was told that admission to the hospital is necessary. Explanation of the reasons why were discussed. The risks of leaving were explained to the patient and include, but are not limited to, worsening of known or currently unknown conditions, permanent disability and from undiagnosed or untreated conditions. The patient has the capacity to make this informed decision and understands my explanation of the current medical problem and risks of leaving. The patient voluntarily accepts these risks and signed an AMA form documenting our conversation. The patient was given the opportunity to ask questions and reconsider. The patient was encouraged to return to the Emergency Department at any time for further care. Past Medical History Reviewed: Historical Data, Nursing Documentation, Vital Signs Vital Signs: Last Vital Signs Temp 98.7 F 11/21/18 10:00 Pulse 88 11/21/18 10:00 Resp 18 11/21/18 10:00 BP 167/89 H 11/21/18 10:00 Pulse Ox 98 11/21/18 10:15 - Medical History PMH: Anemia, Anxiety, Arthritis, Bipolar Disorder, CAD, Cardia Arrhythmia, Colonic Polyps, COPD, Depression, Diverticulitis, Emphysema, Fractures (Right shoulder (9 years old)), Gastritis, GERD, HIV, Hypercholesterolemia, Hypothyroidism, Pneumonia (many years ago) Denies: Chronic Kidney Disease Other PMH: Throat Cancer - Surgical History Surgical History: CABG, Endoscopy Other surgeries: PEG tube surgery - Family History Family History: States: Unknown Family Hx, CAD (2006) - Home Medications Home Medications: Ambulatory Orders Medication Instructions Recorded RX: ARIPiprazole [Abilify] 20 mg PO HS 11/06/16 RX: Abacavir/Dolutegravir/Lamivudi 1 tab PO HS 11/06/16 [Triumeq 600-50-300 mg Tablet] RX: Clonazepam [Klonopin] 0.5 mg PO QID 11/06/16 RX: Levothyroxine [Synthroid] 25 mcg PO DAILY 11/06/16 RX: Multivitamin [One-A-Day 1 tab PO DAILY 11/06/16 Essential] RX: Rosuvastatin Calcium [Crestor] 5 mg PO DAILY 11/06/16 RX: DULoxetine [Cymbalta] 60 mg PO HS 11/13/16 RX: Albuterol HFA [Ventolin HFA 90 2 puff INH RQ4 PRN inhaler 08/10/17 mcg/actuation (8 g)] Calcium Carbonate/Vitamin D3 1 tab PO DAILY 04/07/18 [[place] 500-Vit D3 200 Tablet] Mirtazapine [Remeron] 15 mg PO HS 04/07/18 RX: Non-Formulary 1 ea XX ONCE 1 Days ea 11/21/18 - Allergies Allergies/Adverse Reactions: Allergies Allergy/AdvReac Type Severity Reaction Status Date / Time ampicillin Allergy ITCHING Verified 07/26/18 11:10 latex Allergy ITCHING Verified 07/26/18 11:10 Penicillins Allergy ITCHING Verified 07/26/18 11:10 sulfamethoxazole Allergy "shakes" Verified 07/26/18 11:10 [From Bactrim] trimethoprim [From Bactrim] Allergy "shakes" Verified 07/26/18 11:10 Review of Systems ROS Statement: Except As Marked, All Systems Reviewed And Found Negative Cardiovascular: Negative for: Chest Pain Respiratory: Negative for: Shortness of Breath Gastrointestinal: Negative for: Vomiting Musculoskeletal: Positive for: Other (left hip injury) Neurological: Negative for: Headache, Dizziness Physical Exam - Reviewed Nursing Documentation Reviewed: Yes Vital Signs Reviewed: Yes - Physical Exam Appears: Positive for: No Acute Distress. Negative for: Uncomfortable (Patient is comfortable) Head Exam: Positive for: ATRAUMATIC, NORMOCEPHALIC Skin: Positive for: Normal Color, Warm, Dry Eye Exam: Positive for: Normal appearance, EOMI, PERRL ENT: Positive for: Normal ENT Inspection Neck: Positive for: Normal, Painless ROM, Supple Cardiovascular/Chest: Positive for: Regular Rate, Rhythm. Negative for: Murmur Respiratory: Positive for: Normal Breath Sounds. Negative for: Respiratory Distress Gastrointestinal/Abdominal: Positive for: Normal Exam, Soft. Negative for: Tenderness Back: Positive for: Normal Inspection. Negative for: L CVA Tenderness, R CVA Tenderness, Vertebral Tenderness Extremity: Positive for: Normal ROM (Painful ROM in the left hip). Negative for: Tenderness, Deformity, Swelling Neurologic/Psych: Positive for: Alert, Oriented. Negative for: Motor/Sensory Deficits - Laboratory Results Result Diagrams: 11/21/18 11:05 11/21/18 11:05 - ECG ECG Rhythm: Positive for: Normal QRS, Normal ST Segment, Sinus Rhythm, 1st Degree Heart Block Rate: 77 O2 Sat by Pulse Oximetry: 98 (RA) Pulse Ox Interpretation: Normal Medical Decision Making Medical Decision Making: Time: 1038 Impression: Syncope and Left Hip Injury Differentials include but not limited to cardiac arrhythmia, vasovagal episode, dehydration and Pulmonary Embolism Rule out Fracture and Dislocation Plan: -- CT Head w/o Contrast -- EKG -- BMP -- Troponin I -- ED Urine Dipstick -- CBC with Differentials -- D Dimer -- PTT -- Prothrombin Time -- Glucose, POC -- Hip Left XR Time: 1215 -- XR reviewed by Provider and demonstrates left pelvic fracture. CT Hip ordered for further evaluation -- Labs demonstrate an elevated D Dimer, will order CTA -- CT Hip w/o Contrast Left -- CT Angio Chest PE Protocol Time: 1255 CT HEAD RESULTS FINDINGS: HEMORRHAGE: No acute parenchymal, subarachnoid or extra-axial hemorrhage. BRAIN: Minor chronic periventricular white matter ischemic changes.. Note that the possibility of a small hyperacute infarct cannot be excluded based on this study. Clinical correlation recommended. Mild generalized volume loss. Mild vascular calcifications both carotid siphons. VENTRICLES: No obstructive hydrocephalus. CALVARIUM: Calvarium appears grossly intact.. PARANASAL SINUSES: Mild mucosal thickening noted within the ethmoid air complex.. Minimal mucosal thickening right maxillary antrum MASTOID AIR CELLS: Unremarkable as visualized. No inflammatory changes. OTHER FINDINGS: None. IMPRESSION: Minor chronic periventricular white matter ischemic changes. Mild generalized volume loss Time: 1425 CT HIP RESULTS FINDINGS: BONES: Unremarkable. No fracture or focal lesion. Femoral head maintains normal contour. There is a small bone island or osteoma within the left posterior iliac bone. LEFT HIP JOINT: Unremarkable. No dislocation. No degenerative changes. SOFT TISSUES: In situ femoral/femoral stent jump graft. Small fat containing umbilical hernia. IMPRESSION: No evidence of acute displaced fracture nor dislocation. Time: 1441 CT ANGIO RESULTS FINDINGS: PULMONARY ARTERIES: The visualized pulmonary trunk, right and left main, lobar, segmental and proximal subsegmental branches of the pulmonary arteries are well opacified with no definitive filling defects seen to suggest acute central pulmonary embolus. Pulmonary trunk measures approximately 2.6 cm. AORTA: No acute findings. No thoracic aortic aneurysm. Mild aortic atherosclerotic calcification or mural plaque present. There also partially calcified plaque changes seen at the origins of the great vessels. The left carotid artery and brachiocephalic artery arise from a common trunk. LUNGS: Redemonstrated are centrilobular and panlobular emphysematous changes upper lobe predominance. Bullous and bleb changes are also present in both lung apices.. Also again seen is a focal area of pleural thickening in the right lower lung apex/upper lung field with associated internal calcifications. Findings likely represent chronic postinflammatory changes with dystrophic type calcification and are stable in appearance. Small calcified granuloma left lung base. There is a stable approximately 3.9 mm pleural based nodule left lingular region PLEURAL SPACES: Unremarkable. No effusion or pneumothorax. HEART: Heart size within range of normal.. No significant pericardial effusion. LYMPH NODES: No lymphadenopathy. Trachea midline and patent. There is a small soft tissue density seen along the lateral endoluminal surface of the trachea just at the level of the origins of the great vessels and superior aspect of the aortic arch likely representing some adherent mucous debris. There are a few small nonspecific mediastinal lymph nodes. BONES, CHEST WALL: Minor multilevel degenerative spondylosis of the thoracic spine. OTHER FINDINGS: Unremarkable. IMPRESSION: No evidence of acute central pulmonary embolus. Centrilobular and panlobular as well as bullous emphysematous changes upper lobe predominance. Of chronic stable appearing pleural thickening with associated dystrophic type calcification right lower lung apex and upper lung field. Stable appearing small calcified granuloma and subpleural nodular density left lung base and left lingular region respectively. 1800 On reassessment, patient reports improved pain and was able to get up and ambulate without assistance. Patient informed of plan to admit due to syncope, however states she has a chemotherapy appointment on Thursday with her Oncologist at [facility] and does not wish to miss it. At this time, patient is electing to leave AMA. The patient declines admission to the hospital and wishes to leave the Emergency Department. This action is against my medical advice. This decision was made with informed refusal. The patient was told that admission to the hospital is necessary. Explanation of the reasons why were discussed. The risks of leaving were explained to the patient and include, but are not ahumada ited to, worsening of known or currently unknown conditions, permanent disability and from undiagnosed or untreated conditions. The patient has the capacity to make this informed decision and understands my explanation of the current medical problem and risks of leaving. The patient voluntarily accepts these risks and signed an AMA form documenting our conversation. The patient was given the opportunity to ask questions and reconsider. The patient was encouraged to return to the Emergency Department at any time for further care. Patient states she will follow up with her oncologist on 11/23. Scribe Attestation: Documented by Rhina Quinones, acting as a scribe for Dinora Lyons MD. Provider Scribe Attestation: All medical record entries made by the Scribe were at my direction and personally dictated by me. I have reviewed the chart and agree that the record accurately reflects my personal performance of the history, physical exam, medical decision making, and the department course for this patient. I have also personally directed, reviewed, and agree with the discharge instructions and disposition. Disposition - Clinical Impression Clinical Impression: Injury of hip, left, Groin strain, Syncope, Left against medical advice - Patient ED Disposition Is Patient to be Admitted: No Doctor Will See Patient In The: Office Counseled Patient/Family Regarding: Studies Performed, Diagnosis - Disposition Referrals: [facility] [Outside] Disposition: Against Medical Advice Disposition Time: 17:30 Condition: GOOD Additional Instructions: NILDA CASAS, thank you for letting us take care of you today. Your provider was Dinora Lyons MD and you were treated for FALL:LT BUTTOCK/HIP PAIN. The emergency medical care you received today was directed at your acute symptoms. If you were prescribed any medication, please fill it and take as directed. It may take several days for your symptoms to resolve. Return to the Emergency Department if your symptoms worsen, do not improve, or if you have any other problems. Please contact your doctor or call one of the physicians/clinics you have been referred to that are listed on the Patient Visit Information form that is included in your discharge packet. Bring any paperwork you were given at discharge with you along with any medications you are taking to your follow up visit. Our treatment cannot replace ongoing medical care by a primary care provider outside of the emergency department. Thank you for allowing the [email or web address] team to be part of your care today. If you had an X-Ray or CT scan: A Radiologist will review the ED reading if any change in treatment is needed we will contact you. If you had a blood, urine, or wound culture: It will take several days for the results, if any change in treatment is needed we will contact you. If you had an STI test: It will take 48 hours for the results. Please call after 1 week if you have not heard back. Prescriptions: RX: Non-Formulary 1 ea XX ONCE 1 Days ea Instructions: Groin Strain, Syncope (Fainting) (DC), Leaving Against Medical Advice Forms: [employer] ([place])
[2018-11-21 11:16] LABS: BASO % 0.4 % (0.0-2.0); EOS % 0.1 % (0.0-4.0); HEMOGLOBIN 11.3 g/dL (12.0-16.0); LYMPH # 0.4 K/uL (1.0-4.3); LYMPH % 10.1 % (20.0-40.0); MEAN CELL VOLUME 105.3 fl (81.0-99.0); MEAN CORPUSCULAR HEMOGLOBIN 35.1 pg (27.0-31.0); MEAN CORPUSCULAR HGB CONC 33.4 g/dL (33.0-37.0); MEAN PLATELET VOLUME 8.5 fl (7.2-11.7); MONO # 0.2 K/uL (0.0-0.8); MONO % 6.8 % (0.0-10.0); NEUT # 2.9 K/uL (1.8-7.0); NEUT % 82.6 % (50.0-75.0); NRBC % 0.2 % (0.0-0.0); RBC 3.23 Mil/uL (3.80-5.20); RED CELL DISTRIBUTION WIDTH 13.5 % (11.5-14.5); WHITE BLOOD COUNT 3.5 K/uL (4.8-10.8)
[2018-11-21 11:24] LABS: INR 0.9; PROTHROMBIN TIME 10.2 Seconds (9.8-13.1)
[2018-11-21 11:29] LABS: BLOOD UREA NITROGEN 23 mg/dl (7-17); CALCIUM 9.2 mg/dL (8.4-10.2); GFR NON-AFRICAN AMERICAN > 60
[2018-11-21] MEDS ORDERED: Iohexol 300 100 ML IJ ONE (12:36)
[2018-11-21] MEDS ORDERED: Sodium Chloride 0.9% 50 ML IV ONE ×2 (12:36→13:18)
--- NOTE | 2018-11-21 12:59 | CT ---
Date of service: 11/21/2018 PROCEDURE: CT HEAD WITHOUT CONTRAST. HISTORY: Syncope COMPARISON: Comparison made with prior CT scan brain 11/13/2016.. TECHNIQUE: Axial computed tomography images were obtained through the head/brain without intravenous contrast. Radiation dose: Total exam DLP = 807.55 mGy-cm. This CT exam was performed using one or more of the following dose reduction techniques: Automated exposure control, adjustment of the mA and/or kV according to patient size, and/or use of iterative reconstruction technique. FINDINGS: HEMORRHAGE: No acute parenchymal, subarachnoid or extra-axial hemorrhage. BRAIN: Minor chronic periventricular white matter ischemic changes.. Note that the possibility of a small hyperacute infarct cannot be excluded based on this study. Clinical correlation recommended. Mild generalized volume loss. Mild vascular calcifications both carotid siphons. VENTRICLES: No obstructive hydrocephalus. CALVARIUM: Calvarium appears grossly intact.. PARANASAL SINUSES: Mild mucosal thickening noted within the ethmoid air complex.. Minimal mucosal thickening right maxillary antrum MASTOID AIR CELLS: Unremarkable as visualized. No inflammatory changes. OTHER FINDINGS: None. IMPRESSION: Minor chronic periventricular white matter ischemic changes. Mild generalized volume loss
[2018-11-21] MEDS ORDERED: Iodixanol 320 MG/ML 100 ML BOTTLE IV ONE (13:18)
--- NOTE | 2018-11-21 14:29 | CT ---
Date of service: 11/21/2018 PROCEDURE: CT of the Left Hip. HISTORY: fall left pelvic fracture COMPARISON: None available. TECHNIQUE: Contiguous axial images of the left hip were obtained. Coronal and sagittal reformats were generated. Radiation dose: Total exam DLP = 170.8 mGy-cm. This CT exam was performed using one or more of the following dose reduction techniques: Automated exposure control, adjustment of the mA and/or kV according to patient size, and/or use of iterative reconstruction technique. FINDINGS: BONES: Unremarkable. No fracture or focal lesion. Femoral head maintains normal contour. There is a small bone island or osteoma within the left posterior iliac bone. LEFT HIP JOINT: Unremarkable. No dislocation. No degenerative changes. SOFT TISSUES: In situ femoral/femoral stent jump graft. Small fat containing umbilical hernia. IMPRESSION: No evidence of acute displaced fracture nor dislocation.
--- NOTE | 2018-11-21 14:44 | CT ---
Date of service: 11/21/2018 PROCEDURE: CT Chest with contrast (Pulmonary Angiogram) HISTORY: Chest pain COMPARISON: Comparison made with chest CT scan chest 06/28/2018. TECHNIQUE: Axial computed tomography images were obtained of the chest in the pulmonary arterial phase of enhancement. Coronal and sagittal reformatted images were created and reviewed. Intravenous contrast dose: 90 cc Visipaque 320 Radiation dose: Total exam DLP = 196.67 mGy-cm. This CT exam was performed using one or more of the following dose reduction techniques: Automated exposure control, adjustment of the mA and/or kV according to patient size, and/or use of iterative reconstruction technique. FINDINGS: PULMONARY ARTERIES: The visualized pulmonary trunk, right and left main, lobar, segmental and proximal subsegmental branches of the pulmonary arteries are well opacified with no definitive filling defects seen to suggest acute central pulmonary embolus. Pulmonary trunk measures approximately 2.6 cm. AORTA: No acute findings. No thoracic aortic aneurysm. Mild aortic atherosclerotic calcification or mural plaque present. There also partially calcified plaque changes seen at the origins of the great vessels. The left carotid artery and brachiocephalic artery arise from a common trunk. LUNGS: Redemonstrated are centrilobular and panlobular emphysematous changes upper lobe predominance. Bullous and bleb changes are also present in both lung apices.. Also again seen is a focal area of pleural thickening in the right lower lung apex/upper lung field with associated internal calcifications. Findings likely represent chronic postinflammatory changes with dystrophic type calcification and are stable in appearance. Small calcified granuloma left lung base. There is a stable approximately 3.9 mm pleural based nodule left lingular region PLEURAL SPACES: Unremarkable. No effusion or pneumothorax. HEART: Heart size within range of normal.. No significant pericardial effusion. LYMPH NODES: No lymphadenopathy. Trachea midline and patent. There is a small soft tissue density seen along the lateral endoluminal surface of the trachea just at the level of the origins of the great vessels and superior aspect of the aortic arch likely representing some adherent mucous debris. There are a few small nonspecific mediastinal lymph nodes. BONES, CHEST WALL: Minor multilevel degenerative spondylosis of the thoracic spine. OTHER FINDINGS: Unremarkable. IMPRESSION: No evidence of acute central pulmonary embolus. Centrilobular and panlobular as well as bullous emphysematous changes upper lobe predominance. Of chronic stable appearing pleural thickening with associated dystrophic type calcification right lower lung apex and upper lung field. Stable appearing small calcified granuloma and subpleural nodular density left lung base and left lingular region respectively.
[2018-11-21 16:08] VITALS: RESP 20
[2018-11-21 18:13] VITALS: BP 120/78; TEMP 98.6; O2SAT 98
[2018-11-21 18:16] VITALS: PULSE 77
--- NOTE | 2018-11-21 19:06 | RAD ---
PROCEDURE: Left Hip X-ray Radiographs. HISTORY: left hip pain fall COMPARISON: None. FINDINGS: BONES: No evidence of acute displaced fracture nor dislocation. JOINTS: Minor degenerative changes both hip joints. Degenerative spondylosis lower lumbosacral spine SOFT TISSUES: Normal. OTHER FINDINGS: Note made of distal margin of a PEG tube overlying the surface right mid-lower abdomen IMPRESSION: No evidence of acute displaced fracture nor dislocation.
--- NOTE | 2018-11-21 21:36 | CARD ---
APPROVED REPORT Date of service: 11/21/2018 EKG Measurement Heart [id number] <Conclusion> Sinus rhythm with 1st degree AV block Otherwise normal ECG
== END 2018-11-21 18:11 | disposition left against medical advice (07) ==
LOC: H.ER 09:58
DX: R55 Syncope and collapse (principal); S79.912A Unspecified injury of left hip, initial encounter; S76.219A Strain of adductor muscle, fascia and tendon of unspecified thigh, initial encounter; W19.XXXA Unspecified fall, initial encounter; Y92.89 Other specified places as the place of occurrence of the external cause; E03.9 Hypothyroidism, unspecified; E78.00 Pure hypercholesterolemia, unspecified; J43.9 Emphysema, unspecified; I44.0 Atrioventricular block, first degree; I25.10 Atherosclerotic heart disease of native coronary artery without angina pectoris; J84.10 Pulmonary fibrosis, unspecified; Z88.0 Allergy status to penicillin; Z95.1 Presence of aortocoronary bypass graft; B20 Human immunodeficiency virus [HIV] disease
CPT/HCPCS: 70450; 71275; 73502; 73700; 80048; 82948; 84484; 85025; 85378; 85610; 85730; 93005; 96374; 99285; J1885; Q9967